=== PATIENT | female | born 1950 | race Caucasian/White ===

== ENCOUNTER → 2016-09-22 | Outpatient (CLI) | payer OTHER, BC | LOC: RAD 10:10 | DX: Z12.31 Encounter for screening mammogram for malignant neoplasm of breast (principal) ==

== ENCOUNTER → 2017-11-07 | Outpatient (CLI) | payer OTHER, BC | LOC: RAD 02:16 | DX: Z12.31 Encounter for screening mammogram for malignant neoplasm of breast (principal) ==

== ENCOUNTER → 2019-04-06 | Outpatient (CLI) | payer OTHER, BC | LOC: RAD 04-04 09:46 | DX: Z12.31 Encounter for screening mammogram for malignant neoplasm of breast (principal) ==